=== PATIENT | male | born 1990 | race Caucasian/White ===

== ENCOUNTER 2020-01-23 19:02 | Emergency (ER) | payer BC ==
[2020-01-23 19:10] VITALS: TEMP 97.8; BMI 25.0
[2020-01-23] MEDS ORDERED: FAMOTIDINE 20 MG/50 ML IVPB 20 MG/50 ML MG IVPB ONE ×2 (19:53→20:12)
[2020-01-23] MEDS ORDERED: MAG HYDROX/AL HYDROX/SIMETH 30 ML UNIT-DOSE CUP PO ONE (19:53)
[2020-01-23] MEDS ORDERED: ACETAMINOPHEN 1000 MG/100 ML VIAL (NON FORMULARY) IVPB ONE (19:53)
[2020-01-23] MEDS ORDERED: SODIUM CHLORIDE 0.9% 500 ML INFUS.BAG IV ONE (19:53)
[2020-01-23] MEDS ORDERED: ONDANSETRON 4 MG/2 ML VIAL IVPUSH ONE (19:54)
[2020-01-23] MEDS ORDERED: MAG HYDROX/AL HYDROX/SIMETH 30 ML UNIT-DOSE CUP ONE (20:11)
[2020-01-23] MEDS ORDERED: ACETAMINOPHEN INJECTION 100 ML IVPB ONE (20:11)
[2020-01-23] MEDS ORDERED: ONDANSETRON 4 MG/2 ML VIAL ONE (20:12)
[2020-01-23 21:06] LABS: BASO % 0.6 % (0-2.0); HEMATOCRIT 48.5 % (35.4-49); HEMOGLOBIN 16.4 GM/dL (11.7-16.9); LYMPH % 9.5 % (8-40); MCHC 33.7 g/dl (32.0-35.9); MEAN PLT VOLUME 9.6 fl (7.5-11.1); MONO % 1.5 % (3.8-10.2); NEUT % 88.4 % (42.8-82.8); PLATELET COUNT 237 K/MM3 (134-434); RDW 13.3 % (11.9-15.9); WHITE BLOOD COUNT 13.5 K/mm3 (4.0-10.0)
[2020-01-23 21:10] VITALS: BP 108/66; PULSE 76
[2020-01-23 21:13] LABS: INR 1.03 (0.83-1.09); PROTHROMBIN TIME (PATIENT) 12.4 SEC (9.7-13.0)
[2020-01-23 21:30] LABS: CHLORIDE 110 mmol/L (98-107); POTASSIUM 4.2 mmol/L (3.5-5.1); SODIUM 147 mmol/L (136-145)
[2020-01-23 21:32] LABS: CALCIUM 8.9 mg/dL (8.5-10.1)
[2020-01-23 21:33] LABS: ALBUMIN 4.6 g/dl (3.4-5.0); ANION GAP 8 MMOL/L (8-16); BLOOD UREA NITROGEN 12.6 mg/dL (7-18); CO2 29 mmol/L (21-32); GLUCOSE,RANDOM 122 mg/dL (74-106); LIPASE 85 U/L (73-393)
[2020-01-23 21:36] LABS: CREATININE 0.7 mg/dL (0.55-1.3); SGOT/AST 39 U/L (15-37); SGPT/ALT 117 U/L (13-61); TOT PROT 8.6 g/dl (6.4-8.2)
[2020-01-23 21:38] LABS: BILIRUBIN,TOTAL 0.4 mg/dL (0.2-1)
[2020-01-23 21:39] LABS: ALK PHOS 109 U/L (45-117)
== END 2020-01-23 23:30 | disposition home or self-care (01) ==
LOC: JER 19:02
PROC: 3E0333Z Introduction of Anti-inflammatory into Peripheral Vein, Percutaneous Approach (ICD-10-PCS; principal; 2020-01-23)
PROC: 3E033GC Introduction of Other Therapeutic Substance into Peripheral Vein, Percutaneous Approach (ICD-10-PCS; 2020-01-23)
PROC: 3E033GC Introduction of Other Therapeutic Substance into Peripheral Vein, Percutaneous Approach (ICD-10-PCS; 2020-01-23)
DX: R10.9 Unspecified abdominal pain (principal)
CPT/HCPCS: 36415; 71046-TC-FY; 76705-TC; 80053; 82550; 83690; 84484; 85025; 85610; 93005; 93010; 99285-25; J0131

== ENCOUNTER 2022-01-05 11:39 | Emergency (ER) | payer BC ==
[2022-01-05 11:45] VITALS: BP 115/54; PULSE 73; RESP 18; TEMP 97.8; BMI 23.4
[2022-01-05] MEDS ORDERED: IBUPROFEN 600 MG TABLET (FP) PO ONE ×2 (12:20→12:21)
== END 2022-01-05 12:24 | disposition home or self-care (01) ==
LOC: JERFT 11:39 → JER 11:39 → JERFT 12:24
DX: H66.92 Otitis media, unspecified, left ear (principal)
CPT/HCPCS: 99283-25

== ENCOUNTER 2023-07-02 23:50 | Emergency (ER) | payer BC ==
[2023-07-03 00:02] VITALS: BP 117/71; PULSE 78; RESP 20; TEMP 98.4; BMI 23.4
[2023-07-03] MEDS ORDERED: DEXAMETHASONE SOD PHOSPHATE 10 MG/1 ML VIAL ONE (00:49)
[2023-07-03] MEDS ORDERED: KETOROLAC TROMETHAMINE 30 MG/1 ML VIAL ONE (00:49)
[2023-07-03] MEDS: KETOROLAC TROMETHAMINE 30 MG/1 ML VIAL IVPUSH ONE (00:54)
[2023-07-03] MEDS: DEXAMETHASONE LIQUID 0.5 MG/5 ML PO ONE (00:54)
[2023-07-03] MEDS: KETOROLAC TROMETHAMINE 30 MG/1 ML VIAL IM ONE (00:54)
[2023-07-03 00:55] LABS: THROAT:GRP A STREP NOT DETECTED (NOTDETECTED)
== END 2023-07-03 01:42 | disposition home or self-care (01) ==
LOC: JER 23:50
PROC: 3E0233Z Introduction of Anti-inflammatory into Muscle, Percutaneous Approach (ICD-10-PCS; principal; 2023-07-03)
DX: J02.9 Acute pharyngitis, unspecified (principal); R07.0 Pain in throat; R50.9 Fever, unspecified; R05.9 Cough, unspecified; R09.81 Nasal congestion; Z20.822 Contact with and (suspected) exposure to COVID-19
CPT/HCPCS: 0241U-QW; 87651; 99284-25